=== PATIENT | male | born 1965 | race Caucasian/White ===

== ENCOUNTER 2019-05-18 08:00 | Day surgery (SDC) | payer OTHER, SELFPAY ==
[2019-05-03 13:13] VITALS: BMI 26.5
[2019-05-18 06:29] VITALS: BP 154/98; PULSE 105; RESP 20; TEMP 37.2; O2SAT 98
[2019-05-18] MEDS: LACTATED RINGERS 1,000 ML 150 ML IV CONT (06:33)
--- NOTE | 2019-05-18 07:05 | WPDANESEPPF ---
Anes - Initial Pre Proc Eval Procedure: Operation Date: 05/18/19 07:30 Proposed Procedures p Esophagogastroduodenoscopy - Doe Stokes MD Date/Time: 05/18/19 07:05 Surgeon: Doe Stokes MD Pre Op Diagnosis: Dysphagia, Hazel's Esophagus Patient Data Age: 53 Gender: M Height: 1.8 m Weight: 132.2 kg Last Vital Signs Temp 37.2 C 05/18/19 06:29 Pulse 105 H 05/18/19 06:29 Resp 20 05/18/19 06:29 BP 154/98 H 05/18/19 06:29 Pulse Ox 98 05/18/19 06:29 Allergies Allergy/AdvReac Type Severity Reaction Status Date / Time amoxicillin AdvReac Unknown ABD CRAMPS Verified 05/18/19 06:28 AND DIARRHEA Home Medications Medication Instructions Recorded Confirmed Type amitriptyline 25 mg tablet 25 mg PO BID 01/09/19 05/15/19 History pantoprazole 40 mg tablet,delayed 40 mg PO QAM #90 tablet 02/07/19 05/15/19 Rx release amlodipine 5 mg tablet 5 mg PO DAILY #30 tablet 02/27/19 05/15/19 Rx hydrochlorothiazide 25 mg tablet 25 mg PO DAILY #30 tablet 04/13/19 05/15/19 Rx losartan 100 mg tablet 100 mg PO DAILY #30 tablet 04/18/19 05/15/19 Rx Patient hx anesthesia problems: none Family hx anesthesia problems: none PMFSH Past Medical History Medical History (Updated 05/18/19 @ 07:08 by Levon Roberson MD) Anxiety and depression Barretts esophagus Essential hypertension Morbid obesity with BMI of 40.0-44.9, adult VAMSHI (obstructive sleep apnea) Pure hypercholesterolemia Social History Social History Smoking status: Never smoker Second hand tobacco smoke exposure: No Alcohol intake: current Drinks per week: 12 Substance use: never Substance use type: does not use Gender identity (if verbalized by the patient): Male Anes - Eval Final PreProcedure Day of Procedure 05/18/19 07:05 Patient weight: morbidly obese Heart: regular rate and rhythm Lungs: clear to auscultation and normal air movement Airway: Mallampati scale class II Neurological: alert and oriented Last oral intake: >/= 8 hours ASA classification: III Emergent: no Anesthetic plan: proceed Anesthesia type and monitoring: general GIVS Informed Consent: The patient's anesthetic plan and its attendant risks and benefits were discussed with the patient/family/POA. Questions were solicited and answers provided to the satisfaction of the patient/family/POA.
--- NOTE | 2019-05-18 07:52 | PM.HPGS ---
History of Present Illness History of Present Illness Consent: Risks, benefits, and alternatives have been discussed and questions answered. Patient agrees to proceed with procedure. Chief complaint: Dysphagia, Hazel's Esophagus Narrative: Salazar Gan is a 53 year old W male Referred for semi emergent gastroscopy for evaluation of a 6 week history dysphagia with solids 1 in the cervical region. He has difficulty with solid foods no liquids. Has burning in the back of his throat. He does have a history of gastroesophageal reflux disease with short-segment Hazel's. He denies any weight loss no nausea vomiting hematemesis. Patient states that he could not wait for another 8 weeks And would go to theemergency room. [facility] Past Medical History Medical History Anxiety and depression Barretts esophagus Essential hypertension Morbid obesity with BMI of 40.0-44.9, adult VAMSHI (obstructive sleep apnea) Pure hypercholesterolemia Family History Family History Mother Hypertension Cerebrovascular accident Family history of diabetes mellitus in first degree relative Family history of coronary artery disease Social History Social History Smoking status: Never smoker Second hand tobacco smoke exposure: No Alcohol intake: current Drinks per week: 12 Substance use: never Substance use type: does not use Gender identity (if verbalized by the patient): Male Meds Home Medications and Allergies Home Medications Medication Instructions Recorded Confirmed Type amitriptyline 25 mg tablet 25 mg PO BID 01/09/19 05/15/19 History pantoprazole 40 mg tablet,delayed 40 mg PO QAM #90 tablet 02/07/19 05/15/19 Rx release amlodipine 5 mg tablet 5 mg PO DAILY #30 tablet 02/27/19 05/15/19 Rx hydrochlorothiazide 25 mg tablet 25 mg PO DAILY #30 tablet 04/13/19 05/15/19 Rx losartan 100 mg tablet 100 mg PO DAILY #30 tablet 04/18/19 05/15/19 Rx Allergies Allergy/AdvReac Type Severity Reaction Status Date / Time amoxicillin AdvReac Unknown ABD CRAMPS Verified 05/18/19 06:28 AND DIARRHEA Vital Signs Vital Signs - 24 hr 05/18/19 06:29 Temperature 37.2 C Pulse Rate 105 H Respiratory Rate 20 Blood Pressure 154/98 H Pulse Oximetry 98 Exam Const: Orientation/consciousness: patient oriented x3 Resp: Auscultation: clear to auscultation bilaterally Cardio: Rate: regular rate Rhythm: regular rhythm Heart sounds: no murmurs GI: GI Palp: Yes Soft to palpation, No Tenderness to palpation present (GI), Yes No hepatosplenomegaly present and No Palpable mass present Auscultation: normal bowel sounds Neuro: General: patient oriented x3 and no focal motor deficits Extrem: General: no pedal edema Assessment and Plan Additional Plan EGD with possible esophageal dilatation for evaluation dysphagia
[2019-05-18 08:09] VITALS: BP 108/67; PULSE 66; RESP 20; O2SAT 98
[2019-05-18 08:19] VITALS: BP 120/77; PULSE 80; RESP 27; O2SAT 99
[2019-05-18 08:29] VITALS: BP 121/78; PULSE 75; RESP 18; O2SAT 99
== END 2019-05-18 08:32 | disposition home or self-care (01) ==
PROVIDERS: PCP Family Medicine; Visit Provider Internal Medicine Gastroenterology
PROC: 0DJ08ZZ Inspection of Upper Intestinal Tract, Via Natural or Artificial Opening Endoscopic (ICD-10-PCS; CPT 43235; principal; 2019-05-18 07:30)
DX: R13.10 Dysphagia, unspecified (principal); K21.0 Gastro-esophageal reflux disease with esophagitis; K29.50 Unspecified chronic gastritis without bleeding; E78.00 Pure hypercholesterolemia, unspecified; I10 Essential (primary) hypertension; G47.33 Obstructive sleep apnea (adult) (pediatric); F41.8 Other specified anxiety disorders; E66.01 Morbid (severe) obesity due to excess calories; Z68.41 Body mass index [BMI] 40.0-44.9, adult
CPT/HCPCS: 43239; 88305; J2704; J7120

== ENCOUNTER → 2021-02-17 01:30 | Outpatient (CLI) | payer OTHER, SELFPAY ==
[2021-02-17 13:21] LABS: Influenza Control Positive
[2021-02-18 13:55] LABS: SARS-CoV-2 RNA PCR Positive
== END ==
PROVIDERS: PCP Family Medicine; Visit Provider Nurse Practitioner Family
DX: R05.9 Cough, unspecified (principal); U07.1 COVID-19
CPT/HCPCS: 87804; C9803; U0003; U0005

== ENCOUNTER 2021-03-04 10:58 | Emergency (ER) | payer OTHER, SELFPAY ==
--- NOTE | ~2021-03-04 | CT_ITS ---
EXAMINATION: CT abdomen pelvis w con DATE: 03/04/2021 17:28 INDICATION: Lower abdominal pain. TECHNIQUE: Computed tomography (CT) of the abdomen and pelvis was performed with 100 mL Omnipaque 350 intravenous contrast. Automated exposure control and iterative reconstruction technique were employe d. The dose-length product was 1456.79 mGy-cm. COMPARISON: CT abdomen 07/20/2008 FINDINGS: The visualized portions of the lung bases demonstrate mild atelectasis. A calcified right l tone nodule is consistent with old granulomatous disease. No pleural effusion. The heart size is julito l. No pericardial effusion. There is a small sliding hiatal hernia. The liver, gallbladder, spleen, p ancreas, and adrenal glands are normal. There are cysts in right kidney measuring up to 13 mm. Left k idney is normal. There is a right inguinal hernia containing fat. There are scattered diverticula in the colon. There is fat stranding around a diverticulum of sigmoid colon with local bowel wall thicke manjinder, consistent with diverticulitis. There are no dilated loops of bowel. The appendix is normal. Th ere are no pathologically enlarged lymph nodes. There is no free intraperitoneal fluid. There is mild thoracic spondylosis and moderate lumbar spondylosis. IMPRESSION: 1. Acute sigmoid diverticulitis. No perforation or abscess. 2. Right inguinal hernia containing fat. Reviewed, dictated and finalized at location A. [facility]
[2021-03-04 11:26] VITALS: BP 147/80; PULSE 101; RESP 20; TEMP 37; O2SAT 99
[2021-03-04 13:43] VITALS: BP 119/83; PULSE 87; TEMP 37.1; O2SAT 98
[2021-03-04 16:16] VITALS: BP 146/84; PULSE 87; RESP 18; O2SAT 100
[2021-03-04 16:28] LABS: Basophils Percent Auto 0.4 % (0.2-1.2); Eosinophils Absolute Auto 0.1 K/mm3 (0-0.3); Eosinophils Percent Auto 1.4 % (0-4.4); Hematocrit 43.6 % (42.0-52.0); Hemoglobin 14.5 g/dL (14.0-18.0); Immature Granulocyte Absolute 0.03 K/mm3 (0.00-0.031); Immature Granulocyte Percent A 0.4 % (0-0.5); Immature Platelet Fraction Pct 5.6 % (0.9-11.2); Lymphocytes Percent Auto 19.2 % (18.3-44.2); Mean Corpuscular HGB Conc 33.3 g/dl (32-36); Mean Corpuscular Hemoglobin 30.7 pg (26-34); Mean Corpuscular Volume 92.4 fl (80-100); Mean Platelet Volume 11.1 fl (7.4-10.4); Monocytes Absolute Auto 0.6 K/mm3 (0.1-0.6); Monocytes Percent Auto 8.1 % (2.6-8.5); Neutrophils Absolute Auto 5.1 K/mm3 (1.3-6.7); Neutrophils Percent Auto 70.5 % (45.5-73.1); Platelet Count Result 153 k/mm3 (150-375); Red Blood Count 4.72 M/mm3 (4.6-6.20); Red Cell Distribution Width 12.3 % (11.5-14.5); White Blood Count 7.3 K/mm3 (4.5-10.0)
--- NOTE | 2021-03-04 16:50 | ED.ABDPAIN ---
HPI - Abdominal Pain General Chief Complaint: Abdominal Pain Stated Complaint: lower abd pain Time Seen by Provider: 03/04/21 16:49 Source: patient Mode of arrival: ambulatory Limitations: no limitations History of Present Illness HPI narrative: Patient is 55 years old white male presented to the ED with pain at the lower abdomen bilaterally mainly on the right side started yesterday morning associated with nausea. Reported that the pain radiating to testicles and penis. Patient denies any fever, chills, vomiting, diarrhea, constipation, penile discharge. Patient denies any history of abdominal surgery. History of right inguinal hernia. History of hypertension, GERD, patient does not smoke or uses drugs, drinks daily Related Data Allergies Allergy/AdvReac Type Severity Reaction Status Date / Time amoxicillin AdvReac Unknown ABD CRAMPS Verified 10/16/20 15:52 AND DIARRHEA Review of Systems Review of Systems: CONSTITUTIONAL: Denies fever, chills, or sweats. EYES: Denies visual changes, redness, or discharge. ENT: Denies rhinorrhea, congestion, sore throat, or otalgia. CARDIOVASCULAR: Denies chest pain, palpitations, or edema. RESPIRATORY: Denies cough or dyspnea. GASTROINTESTINAL: Denies abdominal pain, nausea, vomiting, or diarrhea. GENITOURINARY: Denies dysuria or hematuria. SKIN: Denies rash or itching. MUSCULOSKELETAL: Denies back pain, joint pain, or myalgia. NEUROLOGIC: Denies headache, numbness, or weakness. PSYCHIATRIC: Denies anxiety or depression. [facility] [place] Past Medical History Medical History Anxiety and depression Barretts esophagus Diarrhea Essential hypertension Morbid obesity with BMI of 40.0-44.9, adult VAMSHI (obstructive sleep apnea) Pure hypercholesterolemia Family History Family History Mother Hypertension Cerebrovascular accident Family history of diabetes mellitus in first degree relative Family history of coronary artery disease Social History Social History Smoking status: Never smoker Second hand tobacco smoke exposure: Yes Alcohol intake: current Drinks per week: 12 Substance use: never Substance use type: does not use Gender identity (if verbalized by the patient): Male Sexual Orientation (if Verbalized by the Patient): Straight or Heterosexual Exam Narrative: General appearance: Well-developed, well-nourished Skin: Normal color Head: Normocephalic, nontraumatic Eyes: Clear conjunctiva ENT: Oropharynx normal, ears normal, nose normal Neck: Supple, nontender Chest and respiratory: Airway patent, no respiratory distress, no accessory muscle use Heart: Regular rate/rhythm Abdomen: Soft, lower abdominal tenderness mainly right lower quadrant, no organomegaly, quiet bowel sounds Vascular: Normal peripheral pulses, normal capillary refill. Musculoskeletal: Normal range of motion, nontender back Neurologic: Alert and oriented ?3, STUDIO OPERATOR is normal as tested, no gross motor deficit Course Course Emergency Course: Stable Vital Signs Vital signs: Vital Signs Temperature 37.0 C 03/04/21 11:26 Pulse Rate 101 H 03/04/21 11:26 Respiratory Rate 20 03/04/21 11:26 Blood Pressure 147/80 H 03/04/21 11:26 Pulse Oximetry 99 03/04/21 11:26 Temperature 37.1 C 03/04/21 13:43 Pulse Rate 87 03/04/21 16:16 Respiratory Rate 18 03/04/21 16:16 Blood Pressure 146/84 H 03/04/21 16:16 Pulse Oximetry 100 03/04/21 16:16 MDM - Abdominal Pain MDM Narrative Medical decision making narrative: Patient presents with abdominal
[2021-03-04 16:51] LABS: Platelet Estimate Adequate (Adequate)
[2021-03-04 16:56] LABS: Add Urine Microscopic? YES; Alanine Aminotransferase 49 U/L (4-50); Albumin Level 4.3 g/dL (3.5-5.1); Alkaline Phosphatase 64 U/L (38-126); Anion Gap 9 mmol/L (8-16); Appearance Urine Clear (Clear); Aspartate Amino Transferase 29 U/L (17-59); Bilirubin Urine Negative (Negative); Bilirubin,Total 1.6 mg/dL (0.2-1.3); Blood Urea Nitrogen 15 mg/dL (9-20); Blood Urine Negative (Negative); Calcium 9.1 mg/dL (8.4-10.2); Carbon Dioxide 30 mmol/L (22-30); Chloride 98 mmol/L (98-107); Color Urine Amber (Yellow); Estimated CRCL calculation 101 ml/min; Estimated Glomerular Filt Rate > 60; Glucose 122 mg/dL (65-110); Glucose Urine UA Negative (Negative); Ketones Urine Negative (Negative); Leukocyte Esterase Ur Negative LEU/UL (Negative); Lipase 45 U/L (23-300); Mucus Urine Heavy /lpf; Nitrate Urine Negative (Negative); Potassium 4.1 mmol/L (3.4-5.0); Protein Urine 1+ mg/dL (Negative); RBC Urine 0-2 /hpf (0-2); Sodium 137 mmol/L (137-145); Specific Grav Ur 1.029 (1.001-1.035); Squamous Epithelial Cell Urine Rare /hpf (Few); WBC Urine 0-3 /hpf
[2021-03-04] MEDS: ONDANSETRON INJ 4 MG/2 ML VIAL IV PUSH (17:11)
[2021-03-04] MEDS: SODIUM CHLORIDE 0.9% IV 1,000 ML 999 ML IV CONT (17:11)
[2021-03-04] MEDS: HYDROmorphone HCL INJ (*CRX) 1 MG/ML SYR 0.5 MG IV PUSH (17:11)
== END 2021-03-04 18:31 | disposition home or self-care (01) ==
PROVIDERS: Emergency Provider Emergency Medicine; PCP Family Medicine
DX: K57.32 Diverticulitis of large intestine without perforation or abscess without bleeding (principal); I10 Essential (primary) hypertension; K21.9 Gastro-esophageal reflux disease without esophagitis; K22.70 Barrett's esophagus without dysplasia; E66.01 Morbid (severe) obesity due to excess calories; Z68.41 Body mass index [BMI] 40.0-44.9, adult; G47.33 Obstructive sleep apnea (adult) (pediatric); E78.00 Pure hypercholesterolemia, unspecified; K40.90 Unilateral inguinal hernia, without obstruction or gangrene, not specified as recurrent
CPT/HCPCS: 36415; 74177; 80053; 81001; 83690; 85025; 85055; 96361; 96374; 96375; 99284; J1170; J2405; J7030; Q9967

== ENCOUNTER 2021-11-19 17:26 | Outpatient (CLI) | payer OTHER, SELFPAY ==
--- NOTE | ~2021-11-19 | XR_ITS ---
EXAM: XR knee RT 2V DATE: 11/19/2021 17:47 HISTORY: TWISTING INJURY WEDNESDAY, PAIN MORE MEDIAL BUT TO BOTH SIDES . COMPARISON: None available. FINDINGS: Normal mineralization. No fracture or dislocation. No lytic or blastic lesion. Moderate me dial joint space narrowing. Tricompartmental osteophytosis, moderate in the patellofemoral compartmen t. Moderate volume joint fluid. No erosion or periosteal change. Soft tissues within normal limits. IMPRESSION: Moderate right knee joint effusion. No acute osseous finding in the right knee. Reviewed, dictated and finalized at location K.
== END 2021-11-19 17:27 | disposition home or self-care (01) ==
LOC: ANHIMG 17:28
PROVIDERS: PCP Family Medicine; Visit Provider Family Medicine
DX: M25.461 Effusion, right knee (principal)
CPT/HCPCS: 73560

== ENCOUNTER → 2023-02-20 08:52 | Outpatient (CLI) | payer OTHER, SELFPAY ==
--- NOTE | ~2023-02-20 | XR_ITS ---
Clinical Indication: Cough PA and lateral views of the chest: Comparison: None Findings: The lungs are clear, without evidence of focal consolidation or pleural effusion. Cardiome diastinal silhouette is within normal limits. Bones and soft tissues are unremarkable. Impression: Normal chest. Reviewed, dictated and finalized at [facility]. H ANALYST Impression: Normal chest.
== END ==
PROVIDERS: PCP Physician Assistant; Visit Provider Physician Assistant
DX: R05.9 Cough, unspecified (principal)
CPT/HCPCS: 71046